=== PATIENT | female | born 1970 ===

== ENCOUNTER 2017-01-11 09:06 | Emergency (ER) | payer SELFPAY ==
[~2017-01-11] VITALS: Ht 167.6 cm; Wt 65.0 kg
[~2017-01-11 09:06] MED LIST: BUDE100T PO; CITA20 PO; CLON2TAB PO; IBUP-238 PO; NORV5TAB PO; TRIF2TAB PO
[2017-01-11 09:11] VITALS: BP 168/90; PULSE 60; RESP 12; TEMP 98.7; O2SAT 100
[2017-01-11] MEDS ORDERED: AMLO5 PO (09:53)
[2017-01-11] MEDS ORDERED: BUPR100T4 PO (09:53)
[2017-01-11] MEDS ORDERED: CLON2TAB PO (09:53)
[2017-01-11] MEDS ORDERED: IBUP200T2 PO (09:53)
--- NOTE | 2017-01-11 10:21 | PD ---
HPI Chief Complaint: Skin Problem Time Seen by Provider: 10:13 Travel History International Travel<30 days: No Contact w/Intl Traveler<30days: No Traveled to known affect area: No History of Present Illness HPI This is a 46-year-old female who presents to the emergency department with a fluid-filled lump on her upper back, constant for one month, getting increasingly red and inflamed, painful when she lays down and when she works. She's been seeing a doctor in urgent care who put her on Bactrim which she has taken for 8 days but hasn't improved. She denies any fevers or chills. She doesn't have any insurance. PFSH Past Medical History Anxiety: Yes Depression: Yes Cardiovascular Problems: Yes (htn) Diminished Hearing: No Endocrine: No ?: Unknown LMP: 12/18/16 : 0 Past Surgical History Abdominal Surgery: Yes (LEEP) Cholecystectomy: Yes Other Surgery: Yes Social History Alcohol Use: Yes (WINE DAILY) Tobacco Use: No Substance Use: No Allergies-Medications (Allergen,Severity, Reaction): Coded Allergies: No Known Allergies (Unverified , 01/11/17) Reported Meds & Prescriptions Reported Meds & Active Scripts Active Reported Norvasc (Amlodipine Besylate) 5 Mg Tab 5 Mg PO DAILY Ibuprofen 200 Mg Tab 200 Mg PO Q4H PRN Clonazepam 2 Mg Tab 2 Mg PO BID Bupropion HCl 100 Mg Tab 100 Mg PO BID Review of Systems General / Constitutional: No: Fever, Chills Gastrointestinal: No: Nausea, Vomiting Physical Exam Narrative GENERAL: Well-appearing, no acute distress, nontoxic SKIN: Discrete rubbery 3 cm lump along the left mid thoracic area, erythematous and warm HEAD: Atraumatic. Normocephalic. ENT: No nasal bleeding or discharge. Moist mucous membranes MUSCULOSKELETAL: No obvious deformities. No clubbing. No cyanosis. No edema. NEUROLOGICAL: Awake and alert. No obvious cranial nerve deficits. Motor grossly within normal limits. Normal speech. PSYCHIATRIC: Appropriate mood and affect; insight and judgment normal. Data Data Last Documented VS Vital Signs Date Time Temp Pulse Resp B/P Pulse Ox O2 Delivery O2 Flow Rate FiO2 01/11/17 09:11 98.7 60 12 168/90 100 Orders Lidocaine Pf 1% Inj (Xylocaine-Mpf 1% In (01/11/17 10:30) MDM Medical Decision Making Medical Screen Exam Complete: Yes Emergency Medical Condition: Yes Interpretation(s) Afebrile, no tachycardia, hypertensive Differential Diagnosis Abscess, cellulitis, sepsis Narrative Course This is a 46-year-old female who presents to the emergency department with a discrete area on her mid back of fluctuance and erythema consistent with an infection. I suspect that this is an infected cyst. I discussed with the patient that likely an incision and drainage or problem and the infection would likely recur until she sees a general surgeon and has the entire capsule removed. She agreed she wanted an incision and drainage which would be likely a temporary solution to her problem. I incised the area and placed packing to try to prevent recurrence. She was instructed to follow-up in 2 days for packing removal. Procedures Procedure Narrative Incision and drainage: Skin was prepped with ChloraPrep. An 11 blade scalpel was used to incise a 3 cm discrete area of erythema along the mid thoracic back and 10 cc of purulent drainage were expressed. A culture was sent. Iodoform packing was placed. Patient tolerated the procedure well. Diagnosis Primary Impression: Infected cyst of skin Referrals: [facility] Patient Instructions: General Instructions Additional Instructions: If you develop fever, increasing redness, warmth, or spreading of your infection , or severe pain return to the emergency department immediately as you may require antibiotics through your IV. Complete your course of antibiotics as prescribed. Have your packing removed in 2 days. Med/Other Pt SpecificInfo: Prescription(s) given Scripts Cephalexin (Keflex)500 Mg Xox515 Mg PO Q12H 10 Days Ref 0 Prov:Cecilia Alicea MD 01/11/17 Sulfamethoxazole-Trimethoprim (Bactrim DS)800-160 Mg Tab1 Tab PO BID 10 Days Prov:Cecilia Alicea MD 01/11/17 Disposition: 01 DISCHARGE HOME Condition: Stable Cecilia Alicea MD Jan 11, 2017 10:21
[2017-01-11] MEDS ORDERED: LIDOCAINE HCL 1% PF 30 ML VIAL INFIL ONE (10:30)
[2017-01-11] MEDS ORDERED: CEPH-460 PO (10:56)
[2017-01-11] MEDS ORDERED: BACT800T5 PO (10:56)
== END 2017-01-11 11:28 | disposition home or self-care (01) ==
LOC: NEPD 09:06
DX: L72.9 Follicular cyst of the skin and subcutaneous tissue, unspecified (principal)
CPT/HCPCS: 10061; 87070